=== PATIENT | male | born 1960 | race Caucasian/White ===

== ENCOUNTER 2024-05-15 14:02 | Emergency (ER) | payer BC, SELFPAY ==
--- NOTE | ~2024-05-15 | XR_ITS ---
EXAMINATION: XR HAND, LEFT CLINICAL INFORMATION: infection COMPARISON: None available. TECHNIQUE: PA, lateral, and oblique views of the left hand. FINDINGS: Soft tissue swelling/edema involving the third and to a lesser extent second digit. No subcutaneous emphysema. No metallic or greater chronic body. No osteolysis. No acute fracture or dislocation. No lytic or blastic lesions. XR/XR hand LT min 3V IMPRESSION: Cellulitis without overt osteomyelitis, third digit should be considered in the correct clinical settings. Electronically signed by: Ankit Ho MD 05/15/2024 03:07 PM [facility]
[2024-05-15 14:22] VITALS: BP 181/74; PULSE 84; RESP 19; TEMP 36.6; O2SAT 98; BMI 23.8
--- NOTE | 2024-05-15 14:25 | ED_ITS ---
HPI - Extremity Problem General Chief complaint: Extremity Injury, Upper Stated complaint: Infection L Hand Time Seen by Provider: 05/15/24 22:43 Source: patient Limitations: no limitations History of Present Illness HPI Narrative: 63-year-old male, left-hand dominant presents for evaluation of pain and swelling to the left hand, 3rd digit. Patient states he accidentally struck his finger on an object in his garage. Patient states he has had repetitive injury to this area since that time. He denies any obvious breaks in the skin. Over the past several days he has noticed increased swelling and this morning had some discharge from around the nail bed. Patient went to urgent care but was sent to the emergency department for further evaluation and management. He denies any paresthesias or paralysis. No fevers chills nausea or vomiting. Last tetanus was 2018. Related Data Previous Rx's ?Medication ?Instructions ?Recorded doxycycline monohydrate 100 mg 100 mg PO BID 10 days #20 tabs 05/15/24 tablet Allergies Allergy/AdvReac Type Severity Reaction Status Date / Time No Known Allergies Allergy Verified 05/15/24 14:25 Review of Systems 2 Constitutional: Constitutional: Denies fever(s) Musculoskeletal: Comments: Pain to the left hand, 3rd digit [facility] Past Medical History Attestation statement: The following information was validated with the patient. [facility] Narrative: Hypertension Social History Social History Smoked in Last 30 Days: No Use of substances other than those prescribed or required for medical reasons: No Advance Directives: No Advance Directives Information Provided: No Do you have a plan to hurt others: No Plan Physical Exam 2 Vital Signs: Vital Signs: Last Vital Signs Temp 99.0 F 05/15/24 23:40 Pulse 94 05/15/24 23:40 Resp 18 05/15/24 23:40 BP 143/69 H 05/15/24 23:40 Pulse Ox 98 05/15/24 23:40 O2 Del Method Room Air 05/15/24 23:40 BMI result Body Mass Index 23.8 Const: General: cooperative Skin: Other: Erythema and edema with fluctuance surrounding the left hand, 3rd digit at the edge of the nail bed. There is some small amount of purulent discharge noted on the medial aspect. There was no purulence or subungual hematoma noted. Edema extends throughout the 3rd digit. There is erythema up to the DIP. There is no streaking. Capillary refills less than 2 seconds. Extrem: Other: Glove Brusher is 5/5 bilaterally. Radial pulses are +2 and equal. Full range of motion of all digits. No evidence of tendon involvement with opposition, abduction or adduction. Pronation and supination is intact. Course Course Course Narrative: This is a rapid medical exam performed by Yue Koch PA-C. The patient is a 63-year-old male who presents with left 3rd digit pain and swelling x5 days. 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 He has developed progressive swelling pain and redness of the right 3rd digit. Seen at urgent Care they sent him here for further assessment. On exam, the patient has full range of motion at MCP, PIP and DIP, it is diffusely swollen, most pronounced around the nail bed, concern for paronychia. We will be ordering an x-ray, screening labs. The patient is stable and can return to the waiting room pending her full medical assessment. Medications Administered Discontinued Medications Generic Name Dose Route Start Last Admin Trade Name Dane PRN Reason Stop Dose Admin Bacitracin 1 appl 05/15/24 22:59 05/15/24 23:29 Bacitracin Oint 0.9 Gm Packet TOPICAL 05/15/24 23:00 1 appl ONCE ONE Administration Protocol Doxycycline Monohydrate 100 mg 05/15/24 23:00 05/15/24 23:29 Doxycycline Monohydrate 100 Mg Capsule PO 05/15/24 23:01 100 mg ONCE ONE Administration Medical Decision Making Medical Decision Making [facility] Narrative: 63-year-old male with a left hand, 3rd digit paronychia, successfully open drain at the bedside. First dose of antibiotics given now. Reviewed all labs, no leukocytosis. Mild elevation in ESR and CRP. No evidence of osteomyelitis on x-ray. Reviewed all discharge instructions. No further questions at this time. Differential Diagnosis Differential Diagnoses: The differential diagnosis associated with the presentation includes Cellulitis Paronychia Abscess Tenosynovitis, no evidence of Lab Data [facility] Lab Attestation statement: I reviewed the patient's lab results. 05/15/24 15:09 05/15/24 15:08 Labs: Lab Results 05/15/24 05/15/24 Range/Units 15:08 15:09 WBC 5.8 (4.8-10.8) X10*3/uL RBC 4.58 L (4.60-5.80) X10*6/uL Hgb 13.7 L (14.0-18.0) g/dl Hct 39.5 L (42.0-52.0) % MCV 86.2 (80.0-98.0) fL MCH 29.9 (27.0-33.0) pg MCHC 34.7 (31.0-36.0) g/dl RDW 12.6 (11.0-16.0) % Plt Count 206 (160-400) X10*3/uL MPV 9.5 (9.4-12.4) fL Immature Gran % (Auto) 0.3 (0.0-0.4) % Neut % (Auto) 71.8 (45-73) % Lymph % (Auto) 16.0 L (20-40) % Elmore % (Auto) 11.4 H (2-11) % Eos % (Auto) 0.2 (0-4) % Baso % (Auto) 0.3 (0-2) % Lymph # (Auto) 0.9 L (1.2-4.9) X10*3/uL Elmore # (Auto) 0.7 (0.1-1.2) X10*3/uL Eos # (Auto) 0.0 (0.0-0.4) X10*3/uL Baso # (Auto) 0.0 (0.0-0.2) X10*3/uL Abs Immat Gran (auto) 0.02 (0.00-0.03) X10*3/uL Absolute Neuts (auto) 4.2 (2.0-8.3) x10*3/uL Absolute Nucleated RBC 0.000 (0.0-0.012) X10*3/uL Nucleated RBC % (auto) 0.0 (0.0-0.2) /100WBC ESR 20 H (0-15) MM/HR Sodium 137 (135-145) mmol/L Potassium 4.4 (3.3-5.1) mmol/L Chloride 106 (96-108) mmol/L Carbon Dioxide 24 (22-29) mmol/L Anion Gap 11 L (12-20) BUN 20 H (9-16) mg/dL Creatinine 0.73 (0.5-1.4) mg/dL Estim Creat Clear Calc 99.3 Estimated GFR > 60 Random Glucose 105 (60-115) mg/dL Calcium 9.0 (8.4-10.2) mg/dL Magnesium 2.0 (1.6-2.6) mg/dL C-Reactive Protein 1.94 H (< or = 0.50) mg/dL Radiology Impression Discussion of test interpretation with radiology: I have reviewed the radiologist's reading. Radiologist Impression: [address] [address] XRay Report Signed Patient: Eduardo Orantes MR#: [id number] : 1960 Acct:[id number] Age/Sex: 63 / M ADM Date: 05/15/24 Loc: .ED Attending Dr: Ordering Physician: Yue Koch Date of Service: 05/15/24 Procedure(s): XR hand LT min 3V Accession Number(s): [id number] cc: Yue Koch; Miguelito Knutson MD~ EXAMINATION: XR HAND, LEFT CLINICAL INFORMATION: infection COMPARISON: None available. TECHNIQUE: PA, lateral, and oblique views of the left hand. FINDINGS: Soft tissue swelling/edema involving the third and to a lesser extent second digit. No subcutaneous emphysema. No metallic or greater chronic body. No osteolysis. No acute fracture or dislocation. No lytic or blastic lesions. XR/XR hand LT min 3V IMPRESSION: Cellulitis without overt osteomyelitis, third digit should be considered in the correct clinical settings. Electronically signed by: Ankit Ho MD 05/15/2024 03:07 PM [facility] Dictated By: Ankit Choudhary MD Signed By: <Electronically signed by Ankit Lee MD in OV> 05/15/24 1507 DD/ 1445 TD/TT: 05/15/24 1455 Air Chief Marshal: External Record Review External record reviewed: Outpatient record Prescription Management I considered prescription management with: Antibiotic Chronic Conditions Patient?s care impacted by: Hypertension Procedures Procedure Narrative Procedure Narrative: Incision and drainage of paronychia to the left hand, 3rd digit. Prepped and draped in usual sterile fashion with Betadine solution #15. Blade used to make 2 incisions at the edge of the nail bed in the areas of maximum fluctuance. Moderate amount of purulent material obtained. Cleansed and bandaged, bacitracin applied. Discharge Plan Discharge Clinical Impression: Paronychia of left middle finger Patient Disposition: Home, Self-Care Instructions: Paronychia (ED) Additional Instructions: Bandage changes at least twice daily. Keep your hands clean and dry. Cleaned with antibacterial soap and warm water. Antibiotic ointment and bandage. Doxycycline as directed. Finish all antibiotics. Watch for any worsening of symptoms, severe pain, increased discharge, red streaking or any other concern return immediately to the emergency department. Follow-up with your primary care provider. Call this week to schedule a follow- up appointment. Return to the emergency department if you have any worsening of symptoms, or any concerns. Get well soon! Prescriptions: New doxycycline monohydrate 100 mg tablet 100 mg PO BID 10 Days Qty: 20 0RF Stand Alone Forms: Work/School Release Interventions: ED Discharge Assessment Last Done: 05/15/24 23:40 Discharge Date/Time: 05/15/24 23:41 Print Language: Malawian
[2024-05-15 15:13] LABS: MANUAL DIFF FLAG NO
[2024-05-15 15:28] LABS: Anion Gap 11 (12-20); Blood Urea Nitrogen 20 mg/dL (9-16); C Reactive Protein 1.94 mg/dL (< or = 0.50); Carbon Dioxide 24 mmol/L (22-29); Chloride 106 mmol/L (96-108); Creatinine Clr Calc Pharmacy 99.3; Estimated Glomerular Filt Rate > 60; Glucose Random 105 mg/dL (60-115); Potassium 4.4 mmol/L (3.3-5.1); Sodium 137 mmol/L (135-145)
[2024-05-15 15:28] LABS: Basophils Percent Auto 0.3 % (0-2); Eosinophils Percent Auto 0.2 % (0-4); Hematocrit 39.5 % (42.0-52.0); Hemoglobin 13.7 g/dl (14.0-18.0); Imm Gran Abs Auto 0.02 X10*3/uL (0.00-0.03); Imm Gran Pct Auto 0.3 % (0.0-0.4); Lymphocytes Absolute Auto 0.9 X10*3/uL (1.2-4.9); Mean Corpuscular HGB Conc 34.7 g/dl (31.0-36.0); Mean Corpuscular Hemoglobin 29.9 pg (27.0-33.0); Mean Corpuscular Volume 86.2 fL (80.0-98.0); Mean Platelet Volume 9.5 fL (9.4-12.4); Monocytes Absolute Auto 0.7 X10*3/uL (0.1-1.2); Monocytes Percent Auto 11.4 % (2-11); Neutrophils Absolute Auto 4.2 x10*3/uL (2.0-8.3); Neutrophils Percent Auto 71.8 % (45-73); Platelet Count 206 X10*3/uL (160-400); Red Blood Count 4.58 X10*6/uL (4.60-5.80); Red Cell Distribution Width 12.6 % (11.0-16.0); White Blood Count 5.8 X10*3/uL (4.8-10.8)
[2024-05-15 16:28] LABS: Erythrocyte Sedimentation Rate 20 MM/HR (0-15)
[2024-05-15 23:26] VITALS: BP 143/69; PULSE 94; RESP 16; TEMP 37.2; O2SAT 98
[2024-05-15] MEDS: Doxycycline Monohydrate 100 MG CAPSULE PO (23:29)
[2024-05-15] MEDS: Bacitracin Oint 0.9 GM PACKET 1 APPL TOPICAL (23:29)
[2024-05-15 23:40] VITALS: BP 143/69; PULSE 94; RESP 18; TEMP 37.2; O2SAT 98
== END 2024-05-15 23:41 | disposition home or self-care (01) ==
PROVIDERS: Physician Assistant Medical; Emergency Provider Emergency Medicine; PCP Internal Medicine
DX: L03.012 Cellulitis of left finger (principal); M79.645 Pain in left finger(s); R22.32 Localized swelling, mass and lump, left upper limb; Z79.899 Other long term (current) drug therapy
CPT/HCPCS: 10060; 36415; 73130; 80048; 83735; 85025; 85652; 86140; 99283; 99284

== ENCOUNTER → 2024-05-15 14:25 | Outpatient (BNV) | payer SELFPAY | PROVIDERS: PCP Internal Medicine; Visit Provider Radiology Diagnostic Radiology | DX: L03.012 Cellulitis of left finger (principal) | CPT/HCPCS: 73130 ==